=== PATIENT | male | born 1950 | race Caucasian/White ===

== ENCOUNTER 2019-01-10 14:45 | Outpatient (REF) | payer OTHER, SELFPAY ==
[2019-01-10 19:11] LABS: BUN 13 mg/dL (7-18); CREATININE 1.03 mg/dL (0.70-1.30); Calcium 8.6 mg/dL (8.5-10.1); Chloride 104 mmol/L (98-107); Glucose 121 mg/dL (70-100); NT-proBNP 479 pg/mL; Potassium 4.2 mmol/L (3.5-5.1); Sodium 143 mmol/L (136-145); Uric Acid 8.9 mg/dL (3.5-7.2)
== END 2019-01-10 15:05 ==
LOC: NCHCN 14:45
PROVIDERS: PCP Physician Assistant Medical; Visit Provider Internal Medicine
DX: R60.9 Edema, unspecified (principal); M10.9 Gout, unspecified
CPT/HCPCS: 80048; 83880; 84550

== ENCOUNTER 2019-01-14 09:31 | Outpatient (REF) | payer OTHER, SELFPAY ==
[2019-01-14 20:28] LABS: Hemoglobin A1C 6.4 % (4.5-6.2)
[2019-01-14 20:37] LABS: Anion Gap 6.9 mmol/L (3-11); BUN 15 mg/dL (7-18); CO2 31.1 mmol/L (21.0-32.0); CREATININE 1.06 mg/dL (0.70-1.30); Calcium 8.9 mg/dL (8.5-10.1); Calculated LDL 127 mg/dL; Chloride 104 mmol/L (98-107); Cholesterol 187 mg/dL (50-200); Glucose 121 mg/dL (70-100); HDL Cholesterol 49 mg/dL (40-60); Potassium 4.4 mmol/L (3.5-5.1); Sodium 142 mmol/L (136-145); TSH 3.99 uIU/mL (0.36-3.74); Triglyceride 59 mg/dL (30-150)
[2019-01-14 20:56] LABS: C-Reactive Protein 1.22 mg/dL (0.0-0.3); NT-proBNP 416 pg/mL; Uric Acid 8.2 mg/dL (3.5-7.2)
== END 2019-01-14 09:51 ==
LOC: NCHCN 09:31
PROVIDERS: PCP Internal Medicine; Visit Provider Internal Medicine
DX: E78.5 Hyperlipidemia, unspecified (principal); R73.03 Prediabetes; R60.9 Edema, unspecified; M10.9 Gout, unspecified; R06.02 Shortness of breath
CPT/HCPCS: 80048; 80061; 83036; 83880; 84443; 84550; 86140

== ENCOUNTER 2020-01-26 14:09 | Outpatient (REF) | payer OTHER, SELFPAY ==
[2020-01-26 19:49] LABS: HCT 44.6 % (40.0-50.0); HGB 14.7 g/dL (13.5-17.5); MCH 31.8 pg (27.0-33.0); MCV 96.5 fL (80-95); MPV 10.3 fL (8.0-11.0); Platelet Count 239 10^3/uL (130-400); RBC 4.62 10^6/uL (4.36-5.78); RDW 12.5 % (11.8-14.1); RDW-SD 44.5 fL; WBC 5.57 10^3/uL (4.4-10.8)
[2020-01-26 20:21] LABS: Anion Gap 5.6 mmol/L (3-11); BUN 13 mg/dL (7-18); CO2 31.4 mmol/L (21.0-32.0); CREATININE 0.92 mg/dL (0.70-1.30); Calcium 8.6 mg/dL (8.5-10.1); Chloride 105 mmol/L (98-107); Glucose 96 mg/dL (74-106); Potassium 4.3 mmol/L (3.5-5.1); Sodium 142 mmol/L (136-145); Troponin I < 0.05 ng/mL (<0.06)
[2020-01-26 20:31] LABS: D-Dimer 2074 ng/mlFEU (<500)
== END 2020-01-26 14:29 ==
LOC: NCHCN 14:09
PROVIDERS: PCP Internal Medicine; Visit Provider Internal Medicine
DX: E11.9 Type 2 diabetes mellitus without complications (principal); E66.01 Morbid (severe) obesity due to excess calories; J44.9 Chronic obstructive pulmonary disease, unspecified; R03.0 Elevated blood-pressure reading, without diagnosis of hypertension; I48.91 Unspecified atrial fibrillation
CPT/HCPCS: 80048; 85027; 84484; 85379

== ENCOUNTER 2020-02-17 17:52 | Outpatient (REF) | payer OTHER, SELFPAY ==
[2020-02-17 19:18] LABS: Albumin 3.5 g/dL (3.4-5.0); BUN 14 mg/dL (7-18); CREATININE 0.99 mg/dL (0.70-1.30); Chloride 105 mmol/L (98-107); Glucose 111 mg/dL (74-106); NT-proBNP 600 pg/mL (<300); PHOSPHORUS 3.8 mg/dL (2.6-4.7); Potassium 3.9 mmol/L (3.5-5.1); Sodium 142 mmol/L (136-145)
== END 2020-02-17 18:12 ==
LOC: NCHCN 17:52
PROVIDERS: PCP Internal Medicine; Visit Provider Internal Medicine
DX: J90 Pleural effusion, not elsewhere classified (principal); R60.9 Edema, unspecified; B35.6 Tinea cruris
CPT/HCPCS: 80069; 83880

== ENCOUNTER 2020-12-20 14:17 | Outpatient (REF) | payer MEDICARE, SELFPAY ==
[2020-12-20 19:27] LABS: Anion Gap 6.9 mmol/L (3-11); BUN 14 mg/dL (7-18); CO2 33.1 mmol/L (21.0-32.0); CREATININE 0.9 mg/dL (0.70-1.30); Calcium 8.7 mg/dL (8.5-10.1); Chloride 104 mmol/L (98-107); Glucose 74 mg/dL (74-106); Potassium 4.3 mmol/L (3.5-5.1); Sodium 144 mmol/L (136-145)
[2020-12-20 19:45] LABS: HCT 44.7 % (40.0-50.0); HGB 14.2 g/dL (13.5-17.5); MCH 31.1 pg (27.0-33.0); MCHC 31.8 % (32.0-36.0); MCV 97.8 fL (80-95); Platelet Count 257 10^3/uL (130-400); RBC 4.57 10^6/uL (4.36-5.78); RDW 12.7 % (11.8-14.1); RDW-SD 45.7 fL; WBC 5.62 10^3/uL (4.4-10.8)
== END 2020-12-20 14:18 | disposition home or self-care (01) ==
LOC: NCHCN 14:17
PROVIDERS: PCP Internal Medicine; Visit Provider Internal Medicine
DX: I27.81 Cor pulmonale (chronic) (principal); E11.9 Type 2 diabetes mellitus without complications; J44.9 Chronic obstructive pulmonary disease, unspecified; E66.1 Drug-induced obesity
CPT/HCPCS: 80048; 85027

== ENCOUNTER 2022-05-14 18:01 | Outpatient (REF) | payer MEDICARE, SELFPAY ==
[2022-05-14 20:06] LABS: Anion Gap 5.2 mmol/L (3-11); BUN 16 mg/dL (7-18); CO2 30.8 mmol/L (21.0-32.0); CREATININE 0.9 mg/dL (0.70-1.30); Calculated LDL 118 mg/dL (<100); Chloride 106 mmol/L (98-107); Cholesterol 183 mg/dL (<200); Estimated GFR 91.88 (mL/min/1.73m2); Glucose 82 mg/dL (74-106); HDL Cholesterol 52 mg/dL (40-60); Potassium 4.1 mmol/L (3.5-5.1); Sodium 142 mmol/L (136-145); Triglyceride 65 mg/dL (<150)
== END 2022-05-14 18:02 | disposition home or self-care (01) ==
LOC: NCHCN 18:01
PROVIDERS: PCP Internal Medicine; Visit Provider Internal Medicine
DX: E11.9 Type 2 diabetes mellitus without complications (principal); E78.5 Hyperlipidemia, unspecified; R03.0 Elevated blood-pressure reading, without diagnosis of hypertension; E66.01 Morbid (severe) obesity due to excess calories
CPT/HCPCS: 80048; 80061

== ENCOUNTER 2023-02-23 18:11 | Outpatient (REF) | payer MEDICARE, SELFPAY ==
[2023-02-23 20:32] LABS: Anion Gap 7.6 mmol/L (3-11); BUN 16 mg/dL (7-18); CO2 30.4 mmol/L (21.0-32.0); Calcium 8.9 mg/dL (8.5-10.1); Chloride 100 mmol/L (98-107); Estimated GFR 80.47 (mL/min/1.73m2); Glucose 109 mg/dL (74-106); Potassium 3.6 mmol/L (3.5-5.1); Sodium 138 mmol/L (136-145); Uric Acid 5.9 mg/dL (3.5-7.2)
[2023-02-23 20:35] LABS: Abs Immature Grans 0.05 10^3/uL (0.0-0.06); Absolute Basophil Count 0.04 10^3/uL (0.0-0.2); Absolute Eosinophil Count 0.07 10^3/uL (0.0-0.7); Absolute Lymphocyte Count 1.13 10^3/uL (1.2-3.4); Absolute Monocyte Count 0.48 10^3/uL (0.1-0.8); Absolute Neutrophil Count 4.89 10^3/uL (1.2-6.7); Basophils % 0.6; Eosinophils % 1.1; HCT 45.6 % (40.0-50.0); HGB 15.1 g/dL (13.5-17.5); Immature Grans % 0.8; MCH 31.8 pg (27.0-33.0); MCHC 33.1 % (32.0-36.0); MCV 96 fL (80-95); MPV 9.8 fL (8.0-11.0); Monocytes % 7.2; Neutrophils % 73.3; Platelet Count 303 10^3/uL (130-400); RBC 4.75 10^6/uL (4.36-5.78); RDW 12.5 % (11.8-14.1); RDW-SD 44.5 fL; WBC 6.66 10^3/uL (4.4-10.8)
[2023-02-23 20:42] LABS: Bacteria Rare HPF (Negative); C & S Indicated? C&S Done As Ordered; Casts 5-10 Hyaline LPF (Negative); Crystals Negative HPF (Negative); Epithelial Cells Rare HPF (Negative); Mucus Moderate (Negative); RBC 0-2 HPF (0-2); WBC Negative HPF (0-5)
== END 2023-02-23 18:12 | disposition home or self-care (01) ==
LOC: NCHCN 18:11
PROVIDERS: PCP Internal Medicine; Visit Provider Internal Medicine
DX: M10.9 Gout, unspecified (principal); R31.9 Hematuria, unspecified
CPT/HCPCS: 80048; 81015; 84550; 85025; 87086

== ENCOUNTER 2023-04-08 12:32 | Outpatient (REF) | payer MEDICARE, SELFPAY ==
[2023-04-08 20:30] LABS: HCT 42.2 % (40.0-50.0); HGB 13.9 g/dL (13.5-17.5); MCH 31.9 pg (27.0-33.0); MCHC 32.9 % (32.0-36.0); MCV 97 fL (80-95); MPV 10.3 fL (8.0-11.0); Platelet Count 153 10^3/uL (130-400); RBC 4.36 10^6/uL (4.36-5.78); RDW 13.5 % (11.8-14.1); RDW-SD 48.1 fL; WBC 3.41 10^3/uL (4.4-10.8)
[2023-04-08 20:39] LABS: Anion Gap 7.8 mmol/L (3-11); BUN 12 mg/dL (7-18); CO2 29.2 mmol/L (21.0-32.0); CREATININE 0.8 mg/dL (0.70-1.30); Chloride 105 mmol/L (98-107); Estimated GFR 94.62 (mL/min/1.73m2); Glucose 161 mg/dL (74-106); Potassium 3.9 mmol/L (3.5-5.1); Sodium 142 mmol/L (136-145); Uric Acid 6.2 mg/dL (3.5-7.2)
[2023-04-08 20:40] LABS: Hemoglobin A1C 6.1 % (<5.7)
== END 2023-04-08 12:33 | disposition home or self-care (01) ==
LOC: NCHCN 12:32
PROVIDERS: PCP Internal Medicine; Visit Provider Internal Medicine
DX: E11.9 Type 2 diabetes mellitus without complications (principal); M10.9 Gout, unspecified
CPT/HCPCS: 80048; 85027; 83036; 84550

== ENCOUNTER 2024-01-20 14:42 | Outpatient (REF) | payer MEDICARE, SELFPAY ==
[2024-01-20 19:51] LABS: HCT 42.8 % (40.0-50.0); HGB 13.8 g/dL (13.5-17.5); MCH 32.9 pg (27.0-33.0); MCHC 32.2 % (32.0-36.0); MCV 102 fL (80-95); Platelet Count 158 10^3/uL (130-400); RDW 13.3 % (11.8-14.1); RDW-SD 50.4 fL
[2024-01-20 20:10] LABS: C-Reactive Protein 0.75 mg/dL (<or=0.5); Troponin I 22 ng/L (<or=76)
== END 2024-01-20 14:43 | disposition home or self-care (01) ==
LOC: NCHCN 14:42
PROVIDERS: PCP Internal Medicine; Visit Provider Internal Medicine
DX: J90 Pleural effusion, not elsewhere classified (principal); R79.82 Elevated C-reactive protein (CRP); E11.9 Type 2 diabetes mellitus without complications
CPT/HCPCS: 85027; 84484; 86140

== ENCOUNTER → 2024-04-04 08:47 | Outpatient (BNVA) | payer MEDICARE, SELFPAY | PROVIDERS: PCP Internal Medicine; Referring Provider Internal Medicine; Visit Provider Nurse Practitioner Gerontology | DX: R31.9 Hematuria, unspecified (principal); N43.3 Hydrocele, unspecified | CPT/HCPCS: 81003; 99205 ==

== ENCOUNTER 2024-04-04 09:46 | Outpatient (REF) | payer MEDICARE, SELFPAY ==
[2024-04-04 10:55] LABS: Bilirubin Negative (Negative); Blood Small (Negative); Clarity Clear (Clear); Glucose Negative (Negative); Ketones Negative (Negative); Leukocyte Esterase Negative (Negative); Nitrite Negative (Negative); pH 6.5 (5-8)
[2024-04-04 11:02] LABS: Bacteria Negative HPF (Negative); C & S Indicated? No; Casts Negative LPF (Negative); Crystals Negative HPF (Negative); Epithelial Cells Rare HPF (Negative); Mucus Trace (Negative); WBC 0-2 HPF (0-5)
== END 2024-04-04 09:47 | disposition home or self-care (01) ==
LOC: LBN 09:46
PROVIDERS: PCP Internal Medicine; Visit Provider Nurse Practitioner Gerontology
DX: R31.29 Other microscopic hematuria (principal)
CPT/HCPCS: 81003; 81015

== ENCOUNTER 2024-04-08 00:12 | Outpatient (CLI) | payer MEDICARE, SELFPAY ==
[2024-04-08 12:43] LABS: CREATININE 0.9 mg/dL (0.70-1.30); Estimated GFR 90.74 (mL/min/1.73m2)
[2024-04-08] MEDS: Omnipaque 350 MG/ML 500 ML BTL-Imaging package IJ (13:13)
[2024-04-08] MEDS: Omnipaque 350 MG/ML 50 ML BTL IJ (13:14)
[2024-04-08] MEDS: Normal Saline - Diluent 50 ML VIAL IJ (13:15)
--- NOTE | 2024-04-08 13:25 | DI.CT_ITS ---
Exam(s) CT ABDOMEN PELVIS WO/W EXAM: CT ABDOMEN PELVIS WO/W CLINICAL HISTORY: hematuria,r31.9 TECHNIQUE: Imaging Protocol: Axial computed tomography images with coronal and sagittal reformatted images were created and reviewed. CONTRAST MATERIAL: Intravenous: Omnipaque 350 Contrast volume:100 mL Oral: No COMPARISON: No exams were available for comparison FINDINGS: The examination is limited due to patient motion artifact. ABDOMEN: Lung Bases: There is a small left pleural effusion which appears to be encapsulated. Cardiomegaly. There is an infiltrate in the left lower lobe with loss of volume and bronchiectasis. Liver: Normal density. No measurable mass. Portal, Superior Mesenteric, and Splenic Veins: Unremarkable. Gallbladder and Biliary Tract: Gallbladder is contracted. No stones are seen. No biliary ductal dil atation. Pancreas: There is atrophy of the pancreas. No pancreatic mass or peripancreatic fluid collections a re seen. Spleen: Normal. Adrenals: There are bilateral adrenal nodules. The left adrenal logical measures 2.5 x 2.0 cm. The right adrenal nodule measures 2.7 x 2.0 cm. Kidneys: Normal size, contour and axis. No radiodense stones or obstructive uropathy. No masses seen. Abdominal Aorta: Abdominal portion non-dilated. There is atherosclerotic calcification present. Bowel: There is diverticulosis of the colon without evidence of acute diverticulitis. Appendix is un remarkable. Peritoneal Cavity: No ascites, collection or mesenteric inflammatory response. No free air. Lymph Nodes: Within normal limits. Bones: Within normal limits for the patient's age. There is an old fracture deformity of the left il ium. Soft Tissues: Unremarkable. PELVIS: Bladder: The urinary bladder is incompletely distended limiting evaluation. No gross abnormalities i dentified. Reproductive Organs: Unremarkable as visualized. Lymph Nodes: Within normal limits. Bones: Within normal limits for the patient's age. IMPRESSION: 1. There is no evidence of nephrolithiasis or hydronephrosis. No evidence of a renal mass. 2. There is limited evaluation of the urinary bladder due to incomplete distension. No gross abnorma lities identified. 3. Bilateral hypodense adrenal masses most consistent with adrenal adenomas. Nonemergent MRI of the a drenal glands may be obtained for further characterization. 4. Left pleural effusion which appears encapsulated. Comparison should be made with prior examination s if in existence. A CT scan of the chest may considered for further characterization. RADIATION DOSE DELIVERED: 3,617.45mGy.cm Total DLP 3,617.45mGy.cm Total DLP DATA REPOSITORY: All CT scans at this facility are submitted to the National Radiology Data Registry (NRDR) Dose Index Registry (DIR) with the [employer] (ACR). RADIATION OPTIMIZATION: All CT scans at this facility use at least one of these dose optimization te chniques: automated exposure control; mA and/or kV adjustment per patient size (includes targeted exa ms where dose is matched to clinical indication); or iterative reconstruction.
[2024-04-08 22:08] LABS: PSA, Diagnostic 5.6 ng/mL (<=6.5)
== END 2024-04-08 00:32 ==
LOC: DI 00:12
PROVIDERS: PCP Internal Medicine; Visit Provider Nurse Practitioner Gerontology
DX: R31.9 Hematuria, unspecified (principal); R82.89 Other abnormal findings on cytological and histological examination of urine
CPT/HCPCS: 74178; 82565; 84153; Q9967

== ENCOUNTER 2024-04-11 01:07 | Outpatient (CLI) | payer MEDICARE, SELFPAY ==
[2024-04-11] MEDS: Inhaler, Assist Device 1 EACH MC (13:55)
[2024-04-11] MEDS: Levalbuterol HFA 15 GM INH 4 PUFF IH (13:55)
--- NOTE | 2024-04-12 16:02 | W.PFT ---
Date of service: 04/11/24 Time of Service: 13:00 Pulmonary Function Test Result Indications: chronic bronchitis Interpretation Spirometry: No airflow limitation. Restrictive spirometry. No significant bronchodilator response. Lung Volumes: Moderate restriction. Diffusion Capacity: Reduced diffusion Airway Pressure: Normal airways resistance Impression Moderate restrictive lung disease with a reduced diffusion. Clinical Correlation therefore is recommended.
== END 2024-04-11 01:08 | disposition home or self-care (01) ==
LOC: RT 01:07
PROVIDERS: PCP Internal Medicine; Visit Provider Student in an Organized Health Care Education/Training Program
DX: J42 Unspecified chronic bronchitis (principal)
CPT/HCPCS: 94060; 94726; 94729

== ENCOUNTER 2024-04-21 13:46 | Outpatient (REF) | payer MEDICARE, SELFPAY ==
[2024-04-21 19:25] LABS: HCT 42.5 % (40.0-50.0); HGB 13.8 g/dL (13.5-17.5); MCH 32.9 pg (27.0-33.0); MCHC 32.5 % (32.0-36.0); MCV 101 fL (80-95); Platelet Count 162 10^3/uL (130-400); RDW 13.1 % (11.8-14.1); RDW-SD 48.6 fL
[2024-04-21 19:36] LABS: Uric Acid 7.7 mg/dL (3.5-7.2)
== END 2024-04-21 13:47 | disposition home or self-care (01) ==
LOC: NCHCN 13:46
PROVIDERS: PCP Internal Medicine; Visit Provider Internal Medicine
DX: M10.9 Gout, unspecified (principal)
CPT/HCPCS: 85027; 84550

== ENCOUNTER → 2024-04-27 11:39 | Outpatient (BNVA) | payer MEDICARE, SELFPAY | PROVIDERS: PCP Internal Medicine; Referring Provider Internal Medicine; Visit Provider Nurse Practitioner Gerontology | DX: R31.9 Hematuria, unspecified (principal); N43.3 Hydrocele, unspecified; J98.4 Other disorders of lung | CPT/HCPCS: 99213 ==

== ENCOUNTER 2024-05-03 11:34 | Emergency (ER) | payer MEDICARE, SELFPAY ==
[2024-05-03 11:50] VITALS: BP 141/85; PULSE 62; RESP 18; TEMP 36.3; O2SAT 94
[2024-05-03 13:04] VITALS: BP 135/70; PULSE 66; RESP 18; O2SAT 97
--- NOTE | 2024-05-03 13:15 | RT.EKG_ITS ---
APPROVED REPORT Exam: Resting ECG Reason for Exam: gi bleed Patient Location: E HR:55 bpm ECG Measurements Heart Rate 55 AXIS MT [id number] P [id number] QRSd 146 QRS 38 QT 480 T -31 QTc 469 Conclusion Atrial flutter [address] depressions no stemi
--- NOTE | 2024-05-03 13:27 | W.ED.GENAD ---
Discharge Plan Disposition Patient Disposition: Home Discharge Details Clinical Impression: Rectal bleed Primary Care Provider: Glenys Adame ED Provider: Trinity Villagomez Home Meds and New Rx's Prescriptions: No Action colchicine PO BID cyclobenzaprine 10 mg tablet 10 mg PO HS PRN albuterol sulfate 2.5 mg/0.5 mL solution for nebulization 5 mg inhalation Q6H PRN allopurinol 200 mg tablet 200 mg PO DAILY Xarelto 15 mg tablet 15 mg PO DAILY Rx Instructions: must administer with evening meal furosemide 20 mg tablet 20 mg PO BID Stiolto Respimat 2.5-2.5 mcg/actuation mist 2 puff inhalation DAILY levalbuterol HCl 1.25 mg/3 mL solution for nebulization 1.25 mg inhalation Q6H PRN Discharge Instructions Instructions: Bloody Stools, Adult ED Additional Instructions: A referral has been made to general surgery for further evaluation of your bloody stools. They may want to look with the scope to see what is going on I recommend that you also call your primary care provider to schedule follow-up appointment. Continue taking your medications as prescribed. Your CAT scan today was reassuring. There are incidental findings of stable bilateral adrenal nodules. This is something you may want to further evaluate with primary care provider. Return to emergency care if you develop new abdominal pain, vomiting, worsening blood in your stool, palpitations, dizziness, or if you are very worried and need to be rechecked again immediately. Referrals: [facility] [Provider Group] [facility] General Date/Time Provider Initiated Documentation: 05/03/24 11:54. HPI Narrative: Clemente is a 73year old male who presents to the emergency department today for evaluation of blood in stool. He reports that yesterday he first noticed a few drops of blood after he had a normal bowel movement. Today he had more blood, including bright red blood and dark blood clots after his bowel movement. He admits to some lower abdominal discomfort but the stomach he was waiting room, otherwise no discomfort. Denies fever/chills, dizziness, palpitations, new shortness of breath, chest pains, nausea/vomiting, hematuria, gum bleeding, nosebleeds. He is not sure if he has had a colonoscopy in the past. Past medical history is significant for anticoagulation with Xarelto, A-fib, hemorrhoids, COPD, tobacco use. Physical exam remarkable for grossly bloodly stool, positive Hemoccult. Normal rectal exam otherwise. No obvious hemorrhoids. Abdomen is obese, softly distended, nontender to palpation with normoactive bowel sounds. Normal heart sounds. Easy work of breathing, lung sounds clear bilaterally. No CVA tenderness or lower back discomfort with palpation. Moving all extremities equally. No pallor to conjunctiva or gumline. D/dx includes but is not limited to: Lower GI bleed, diverticulitis, hemorrhoids, supratherapeutic anticoagulation I independently interpreted the following tests: INR slightly elevated at 1.2. CBC, CMP, magnesium all reassuring. Slightly elevated isolated bilirubin 1.2, LFTs otherwise unremarkable. CTA abdomen/pelvis performed, no active GI bleeding noted. There is a persistent small left pleural effusion and left basilar infiltrate; patient denies recent coughing or general malaise, says he [place] [facility] recent fluid drained from his lungs within the last3 weeks. Overall workup today reassuring, no evidence of anemia or active GI bleeding at this time. Recommend close follow-up with general surgery for further evaluation / management. Reviewed discharge instructions with patient, including symptomatic management and red flags indicating need for return to emergency care Related Data Home Medications ?Medication ?Instructions ?Recorded ?Confirmed colchicine PO BID 06/17/23 06/17/23 albuterol sulfate 2.5 mg/0.5 mL 5 mg inhalation Q6H PRN 11/27/23 05/03/24 solution for nebulization allopurinol 200 mg tablet 200 mg PO DAILY 11/27/23 05/03/24 cyclobenzaprine 10 mg tablet 10 mg PO HS PRN 11/27/23 05/03/24 rivaroxaban 15 mg tablet (Xarelto) 15 mg PO DAILY 11/27/23 05/03/24 furosemide 20 mg tablet 20 mg PO BID 12/16/23 05/03/24 levalbuterol HCl 1.25 mg/3 mL 1.25 mg inhalation Q6H PRN 12/16/23 05/03/24 solution for nebulization tiotropium 2.5 mcg-olodaterol 2.5 2 puff inhalation DAILY 12/16/23 05/03/24 mcg/actuation mist for inhalation (Stiolto Respimat) Allergies Allergy/AdvReac Type Severity Reaction Status Date / Time No Known Allergies Allergy Verified 05/03/24 11:54 General Stated Complaint: GI Bleed ALBINO: 3 Review of Systems Narrative: see HPI Exam Const General: cooperative, healthy appearing, comfortable, no acute distress and well developed Nutritional Appearance: obese Orientation: alert and oriented x3 Eyes Conjunctivae: conjunctivae normal Resp Effort & Inspection: normal respiratory effort and able to speak in complete sentences Auscultation: clear to auscultation bilaterally Cardio Rate: regular rate Rhythm: regular rhythm GI Inspection: normal to inspection, no abdominal wall ecchymosis and obesity Palpation: soft, not firm, no guarding and nontender Auscultation: normal bowel sounds Rectal Exam: visual inspection normal, normal sphincter tone, No fecal impaction, heme positive stool, No hemorrhoids, No laceration, No lesions and No mass Back/Spine/Pelvis Back: no CVA tenderness Thoracic/Lumbar Spine: No paraspinal tenderness Course Vital Signs Vital signs: Vital Signs Temperature 36.3 C L 05/03/24 11:50 Pulse 62 05/03/24 11:50 Respiratory Rate 18 05/03/24 11:50 Blood Pressure 141/85 H 05/03/24 11:50 Pulse Oximetry 94 05/03/24 11:50 Temperature 36.3 C L 05/03/24 11:50 Temperature Source Oral 05/03/24 11:50 Pulse 66 05/03/24 13:04 Respiratory Rate 18 05/03/24 13:04 Respiratory Effort Normal, Non-Labored 05/03/24 13:04 Respiratory Depth Normal 05/03/24 13:04 Respiratory Pattern Normal 05/03/24 13:04 Blood Pressure 135/70 05/03/24 13:04 Blood Pressure Mean 91 05/03/24 13:04 Blood Pressure Position Sitting 05/03/24 13:04 Pulse Oximetry 97 05/03/24 13:04 Oxygen Delivery Method Room Air 05/03/24 13:04 Oxygen Flow Rate 0 05/03/24 13:04 Medical Decision Making Imaging Data Radiologic Study: Radiologist's impression: Accession No. : [id number] Creator : GLENYS MORALEZ Dictator : GLENYS MORALEZ Airplane Pilot : Launch Commander [employer] : GLENYS MORALEZ Approver2 : Report Date : 05/03/2024 15:36:56 Exam(s) CT ABDOMEN PELVIS CTA EXAM: CT ABDOMEN PELVIS CTA CLINICAL HISTORY: GI bleed, red blood per rectum. on xarelto. TECHNIQUE: Imaging Protocol: Axial CT angiography was performed with multi-slice acquisition and multi-planar and/or 3D reconstructions. CONTRAST MATERIAL: Intravenous: Omnipaque 350 Contrast volume:100mL Oral: No COMPARISON: CT CT ABDOMEN PELVIS WO/W from 04/08/2024 FINDINGS: ABDOMEN AND PELVIS: Abdomen: Celiac axis/mesenteric arteries: No evidence of occlusion or significant stenosis. Renal Arteries: No evidence of occlusion or significant stenosis. Mild atherosclerotic calcification at the origin of the left renal artery. Aorta: No evidence of occlusion or significant stenosis. No aneurysm or dissection. Atherosclerotic calcification is present. Pelvis: Iliac Arteries: No evidence of occlusion or significant stenosis. Atherosclerotic calcification is present. Common Femoral Arteries: No evidence of occlusion or significant stenosis. Atherosclerotic calcification is present. ABDOMEN: Lung bases: There is a left pleural effusion and a left lower lobe infiltrate. Cardiomegaly. Liver: Normal density. No measurable mass. Portal, Superior Mesenteric, and Splenic Veins: Unremarkable. No evidence of portal venous gas. Gallbladder and Biliary Tract: No radiodense calculus or dilation. Pancreas: There is fatty infiltration of the pancreas. No evidence of a pancreatic mass or peripancreatic fluid collection. Spleen: Normal. Adrenals: There are bilateral adrenal nodules. There is a 2.4 x 2.1 cm hypodense left adrenal nodule. There is a 2.0 x 2.8 cm hypodense right adrenal nodule. Kidneys: Normal size, contour and axis. No radiodense stones or obstructive uropathy. No masses seen. Bowel: There is diverticulosis of the colon without evidence of acute diverticulitis. There is no evidence of bowel obstruction or bowel wall thickening. Portions of the ascending and descending colon were not included on the examination due to patient body habitus and technique. No pneumatosis is identified. Appendix is unremarkable. Peritoneal Cavity: No ascites, collection or mesenteric inflammatory response. No free air. Lymph Nodes: Within normal limits. Bones: Unremarkable. There is an old healed fracture deformity of the left iliac bone. There is L5 spondylolysis but no spondylolisthesis. Soft Tissues: Unremarkable. PELVIS: Bladder: Urinary bladder is incompletely distended limiting evaluation. Reproductive Organs: Unremarkable as visualized. Lymph Nodes: Within normal limits. Bones: Within normal limits. IMPRESSION: 1. No acute abdominal or pelvic process. 2. Persistent small left pleural effusion and left basilar infiltrate. 3. Stable bilateral adrenal nodules. Nonemergent MRI may be obtained for further evaluation. 4. No evidence of gastrointestinal bleeding. 5. No evidence of abdominal aortic dissection or aneurysm. RADIATION DOSE DELIVERED: 2,545.88mGy.cm Total DLP DATA REPOSITORY: All CT scans at this facility are submitted to the National Radiology Data Registry (NRDR) Dose Index Registry (DIR) with the [employer] (ACR). RADIATION OPTIMIZATION: All CT scans at this facility use at least one of these dose optimization techniques: automated exposure control; mA and/or kV adjustment per patient size (includes targeted exams where dose is matched to clinical indication); or iterative reconstruction. Quality:SDOH Health Related Social Needs: No Data to Display PFSH All Active Problems (Updated 05/03/24 @ 16:19 by Trinity Patel) Rectal bleed (Acute) Hematuria (Acute) Impairment of speech discrimination (Acute) Medical History COPD (chronic obstructive pulmonary disease) Prediabetes Smoker HTN (hypertension) Dyspnea Anticoagulant long-term use Mild neurocognitive disorder Lumbar spondylosis Pleural effusion Nicotine dependence Type 2 diabetes mellitus Edema Disorder of lung Gout ELEUTERIO (obstructive sleep apnea) SCCA (squamous cell carcinoma) of skin Tinea cruris HLD (hyperlipidemia) Severe obesity Afib Hydrocele Snoring (08/06/16) Sensorineural hearing loss (SNHL) of both ears Diffuse otitis externa of left ear (08/06/16) Surgical History S/P herniorrhaphy History of left hip replacement S/P ORIF (open reduction internal fixation) fracture Left arm Family History Father Heart disease Brother Heart disease Social History Smoking/Tobacco Use Status: Never Smoking risk assessment performed?: Yes Alcohol Intake: current Alcohol Intake frequency: a few times a week Drug use: Never Substance use type: does not use Do you feel safe at home: Yes Do you feel safe in your relationship?: Yes PAWSS Have you Been Recently Intoxicated or Drunk Within the Last 30 days?: No Have you Ever Experienced Previous Episodes of Alcohol Withdrawal?: No Have you ever Experienced Withdrawal Seizures?: No Have you ever Experienced Delirium Tremens(DT)s?: No Have you ever undergone Alcohol Rehabilitation Treatment (i.e, inpt ot outpatient treatment programs)?: No Have you ever Experienced Blackouts?: No Have you ever Combined Alcohol with other Downers within the last 90 days?: No Have you ever Combined Alcohol with any other Substance of Abuse during the last 90 days?: No Positive Blood Alcohol level on Presentation? [PCS.BAL]: No Evidence of Increased Autonomic Activity (i.e. HR>120, tremor, sweating, agitation, nausea)?: No Result: 0
[2024-05-03 14:10] LABS: Abs Immature Grans 0.01 10^3/uL (0.0-0.06); Absolute Basophil Count 0.05 10^3/uL (0.0-0.2); Absolute Eosinophil Count 0.06 10^3/uL (0.0-0.7); Absolute Lymphocyte Count 0.94 10^3/uL (1.2-3.4); Absolute Monocyte Count 0.47 10^3/uL (0.1-0.8); Absolute Neutrophil Count 2.98 10^3/uL (1.2-6.7); Basophils % 1.1 %; Eosinophils % 1.3 %; HCT 42.2 % (40.0-50.0); HGB 13.8 g/dL (13.5-17.5); Immature Grans % 0.2 %; Lymphocytes % 20.8 %; MCHC 32.7 % (32.0-36.0); MCV 101 fL (80-95); MPV 9.5 fL (8.0-11.0); Monocytes % 10.4 %; Neutrophils % 66.2 %; Platelet Count 147 10^3/uL (130-400); RBC 4.18 10^6/uL (4.36-5.78); RDW 13.2 % (11.8-14.1); RDW-SD 49.2 fL; WBC 4.51 10^3/uL (4.4-10.8)
[2024-05-03 14:24] LABS: INR 1.2 (0.9-1.1); PTT Activated 29.5 sec (20.6-30.2); Prothrombin Time 12.1 sec (9.1-11.1)
[2024-05-03 14:35] LABS: ALT 16 U/L (16-63); AST 18 U/L (15-37); Albumin 3.3 g/dL (3.4-5.0); Alkaline Phosphatase 99 U/L (46-116); Anion Gap 6.1 mmol/L (3-11); BUN 14 mg/dL (7-18); Bilirubin, Total 1.26 mg/dL (0.2-1.0); CO2 30.9 mmol/L (21.0-32.0); CREATININE 0.9 mg/dL (0.70-1.30); Chloride 107 mmol/L (98-107); Estimated GFR 90.74 (mL/min/1.73m2); Glucose 92 mg/dL (74-106); Magnesium 2.1 mg/dL (1.8-2.4); Sodium 144 mmol/L (136-145); Total Protein 7.3 g/dL (6.4-8.2)
[2024-05-03] MEDS: Normal Saline - Diluent 50 ML VIAL IJ (14:53)
[2024-05-03] MEDS: Omnipaque 350 MG/ML 100 ML BTL IJ (14:54)
--- NOTE | 2024-05-03 15:17 | DI.CT_ITS ---
Exam(s) CT ABDOMEN PELVIS CTA EXAM: CT ABDOMEN PELVIS CTA CLINICAL HISTORY: GI bleed, red blood per rectum. on xarelto. TECHNIQUE: Imaging Protocol: Axial CT angiography was performed with multi-slice acquisition and m ulti-planar and/or 3D reconstructions. CONTRAST MATERIAL: Intravenous: Omnipaque 350 Contrast volume:100mL Oral: No COMPARISON: CT CT ABDOMEN PELVIS WO/W from 04/08/2024 FINDINGS: ABDOMEN AND PELVIS: Abdomen: Celiac axis/mesenteric arteries: No evidence of occlusion or significant stenosis. Renal Arteries: No evidence of occlusion or significant stenosis. Mild atherosclerotic calcification at the origin of the left renal artery. Aorta: No evidence of occlusion or significant stenosis. No aneurysm or dissection. Atherosclerotic calcification is present. Pelvis: Iliac Arteries: No evidence of occlusion or significant stenosis. Atherosclerotic calcification is p resent. Common Femoral Arteries: No evidence of occlusion or significant stenosis. Atherosclerotic calcifica tion is present. ABDOMEN: Lung bases: There is a left pleural effusion and a left lower lobe infiltrate. Cardiomegaly. Liver: Normal density. No measurable mass. Portal, Superior Mesenteric, and Splenic Veins: Unremarkable. No evidence of portal venous gas. Gallbladder and Biliary Tract: No radiodense calculus or dilation. Pancreas: There is fatty infiltration of the pancreas. No evidence of a pancreatic mass or peripancr eatic fluid collection. Spleen: Normal. Adrenals: There are bilateral adrenal nodules. There is a 2.4 x 2.1 cm hypodense left adrenal nodule . There is a 2.0 x 2.8 cm hypodense right adrenal nodule. Kidneys: Normal size, contour and axis. No radiodense stones or obstructive uropathy. No masses seen. Bowel: There is diverticulosis of the colon without evidence of acute diverticulitis. There is no ev idence of bowel obstruction or bowel wall thickening. Portions of the ascending and descending colon were not included on the examination due to patient body habitus and technique. No pneumatosis is i dentified. Appendix is unremarkable. Peritoneal Cavity: No ascites, collection or mesenteric inflammatory response. No free air. Lymph Nodes: Within normal limits. Bones: Unremarkable. There is an old healed fracture deformity of the left iliac bone. There is L5 s pondylolysis but no spondylolisthesis. Soft Tissues: Unremarkable. PELVIS: Bladder: Urinary bladder is incompletely distended limiting evaluation. Reproductive Organs: Unremarkable as visualized. Lymph Nodes: Within normal limits. Bones: Within normal limits. IMPRESSION: 1. No acute abdominal or pelvic process. 2. Persistent small left pleural effusion and left basilar infiltrate. 3. Stable bilateral adrenal nodules. Nonemergent MRI may be obtained for further evaluation. 4. No evidence of gastrointestinal bleeding. 5. No evidence of abdominal aortic dissection or aneurysm. RADIATION DOSE DELIVERED: 2,545.88mGy.cm Total DLP DATA REPOSITORY: All CT scans at this facility are submitted to the National Radiology Data Registry (NRDR) Dose Index Registry (DIR) with the [employer] (ACR). RADIATION OPTIMIZATION: All CT scans at this facility use at least one of these dose optimization te chniques: automated exposure control; mA and/or kV adjustment per patient size (includes targeted exa ms where dose is matched to clinical indication); or iterative reconstruction.
[2024-05-03 16:36] VITALS: BP 135/65; PULSE 82; RESP 18; O2SAT 96
== END 2024-05-03 16:36 | disposition home or self-care (01) ==
PROVIDERS: Emergency Provider Nurse Practitioner Family; PCP Internal Medicine
DX: K62.5 Hemorrhage of anus and rectum (principal)
CPT/HCPCS: 36415; 80053; 93005; 99285; 74174; 83735; 85025; 85610; 85730; 93010; 99284; J3490

== ENCOUNTER → 2024-05-09 13:13 | Outpatient (BNVA) | payer MEDICARE, SELFPAY | PROVIDERS: PCP Internal Medicine; Referring Provider Nurse Practitioner Family; Visit Provider Surgery | DX: K62.5 Hemorrhage of anus and rectum (principal); J44.9 Chronic obstructive pulmonary disease, unspecified | CPT/HCPCS: 99214 ==

== ENCOUNTER 2024-05-27 06:56 | Day surgery (SDC) | payer MEDICARE, SELFPAY ==
[2024-05-27 07:00] VITALS: BP 145/86; PULSE 74; RESP 20; TEMP 37; O2SAT 96
--- NOTE | 2024-05-27 08:54 | W.ANESPRE ---
General Info Date of Service Date Performed: 05/27/24 Height: 5 ft 7 in Weight: 116.2 kg Body Mass Index (BMI): 40.1 Surgical Procedure: Operation Date: 05/27/24 09:20 Proposed Procedure Side Surgeon kvng Fournier MD Meds Allergies and Home Medications Allergies Allergy/AdvReac Type Severity Reaction Status Date / Time No Known Allergies Allergy Verified 05/27/24 07:25 Home Medication ?Medication ?Instructions ?Recorded albuterol sulfate 2.5 mg/0.5 mL 5 mg inhalation Q6H PRN 11/27/23 solution for nebulization rivaroxaban 15 mg tablet (Xarelto) 15 mg PO DAILY 11/27/23 furosemide 20 mg tablet 20 mg PO BID 12/16/23 levalbuterol HCl 1.25 mg/3 mL 1.25 mg inhalation Q6H PRN 12/16/23 solution for nebulization allopurinol 200 mg tablet 100 mg PO DAILY PRN 05/09/24 peg 3350-electrolytes 236 240 ml PO Q10M #4,000 mL 05/09/24 gram-22.74 gram-6.74 gram-5.86 gram solution (Golytely) Current Visit Medications: Current Medications Generic Name Dose Route Start Last Admin Trade Name Freq PRN Reason Stop Dose Admin Ringer's Solution 1,000 mls @ 80 mls/hr 05/27/24 06:00 IV 05/27/24 23:59 INFUSION TAVO IV Miscellaneous Supplies 1 each 05/27/24 06:00 Iv Access IV 05/27/24 23:59 DIRECTED TAVO Sodium Chloride 0 ml 05/27/24 06:00 Normal Saline Flush 10 Ml Syr IV 05/27/24 23:59 PRN PRN Sodium Chloride 0 ml 05/27/24 06:00 Normal Saline 10 Ml Vial IJ 05/27/24 23:59 DIRECTED PRN Sterile Water 0 ml 05/27/24 06:00 Water,Injection,Sterile 10 Ml Vial IJ 05/27/24 23:59 DIRECTED PRN PFSH Active Problems Active Problems: Problem Status Onset Code Sensorineural hearing loss, bilateral Acute 08/25/16 H90.3 Rectal bleed Acute K62.5 Hematuria Acute R31.9 Impairment of speech discrimination Acute H93.299 Medical History Medical History COPD (chronic obstructive pulmonary disease) Prediabetes Smoker HTN (hypertension) Dyspnea Anticoagulant long-term use Mild neurocognitive disorder Lumbar spondylosis Pleural effusion Nicotine dependence Type 2 diabetes mellitus Edema Disorder of lung Gout ELEUTERIO (obstructive sleep apnea) SCCA (squamous cell carcinoma) of skin Tinea cruris HLD (hyperlipidemia) Severe obesity Afib Hydrocele Snoring (08/06/16) Sensorineural hearing loss (SNHL) of both ears Diffuse otitis externa of left ear (08/06/16) Surgical History Surgical History S/P herniorrhaphy History of left hip replacement Pt. denies this states he had a fractured hip but no replacement. S/P ORIF (open reduction internal fixation) fracture Left arm Tobacco Smoking/Tobacco Use Status: Former Tobacco Use Passive smoking exposure: No Alcohol Alcohol Intake: current Alcohol intake frequency: a few times a week Substance Use Substance use: Never Substance use type: does not use Vital Signs and Lab Results Vital Signs Most Recent Vital Signs in EMR: Most Recent Vital Signs Temp Pulse Resp BP Pulse Ox 37 C 74 20 145/86 H 96 05/27/24 07:00 05/27/24 07:00 05/27/24 07:00 05/27/24 07:00 05/27/24 07:00 Lab Results Blood Type / Crossmatch: No Data to Display Complete Blood Count: White Blood Count 4.51 10^3/uL (4.4-10.8) 05/03/24 13:55 Red Blood Count 4.18 10^6/uL (4.36-5.78) L 05/03/24 13:55 Hemoglobin 13.8 g/dL (13.5-17.5) 05/03/24 13:55 Hematocrit 42.2 % (40.0-50.0) 05/03/24 13:55 Platelet Count 147 10^3/uL (130-400) 05/03/24 13:55 Complete Metabolic Panel: Sodium 144 mmol/L (136-145) 05/03/24 13:55 Potassium 4.0 mmol/L (3.5-5.1) 05/03/24 13:55 Chloride 107 mmol/L (98-107) 05/03/24 13:55 Carbon Dioxide 30.9 mmol/L (21.0-32.0) 05/03/24 13:55 BUN 14 mg/dL (7-18) 05/03/24 13:55 Creatinine 0.9 mg/dL (0.70-1.30) 05/03/24 13:55 Est GFR (CKD-EPI 2020) 90.74 (mL/min/1.73m2) 05/03/24 13:55 Magnesium 2.1 mg/dL (1.8-2.4) 05/03/24 13:55 Calcium 9.0 mg/dL (8.5-10.1) 05/03/24 13:55 Albumin 3.3 g/dL (3.4-5.0) L 05/03/24 13:55 Glucose 92 mg/dL (74-106) 05/03/24 13:55 Liver Function Panel: Alanine Aminotransferase (ALT/SGPT) 16 U/L (16-63) 05/03/24 13:55 Aspartate Amino Transf (AST/SGOT) 18 U/L (15-37) 05/03/24 13:55 Coagulation Panel: INR International Normalized Ratio 1.2 (0.9-1.1) H 05/03/24 13:55 Prothrombin Time 12.1 sec (9.1-11.1) H 05/03/24 13:55 Activated Partial Thromboplast Time 29.5 sec (20.6-30.2) 05/03/24 13:55 Cardiac Panel: No Data to Display Arterial Blood Gas: No Data to Display Venous Blood Gas: No Data to Display Pancreas Panel: No Data to Display Thyroid Panel: No Data to Display Infectious Disease: No Data to Display Blood Cultures: No Data to Display Toxicology Panel: No Data to Display Imaging and Studies Imaging and Studies Study information below may be from another EMR and interpreted by another provider. Please see original notes in EMR for more complete details. EKG Summary: 05/03/24: Exam: Resting ECG Reason for Exam: gi bleed Patient Location: E HR:55 bpm ECG Measurements Heart Rate 55 AXIS OK [id number] P [id number] QRSd 146 QRS 38 QT 480 T-31 QTc 469 Conclusion Atrial flutter [address] depressions no stemi I have reviewed and I agree with the emergency room physician's ECG interpretation. Pulmonary Function Summary: 04/12/24: Pulmonary Function Test Result Indications: chronic bronchitis Interpretation Spirometry: No airflow limitation. Restrictive spirometry. No significant bronchodilator response. Lung Volumes: Moderate restriction. Diffusion Capacity: Reduced diffusion Airway Pressure: Normal airways resistance Impression Moderate restrictive lung disease with a reduced diffusion. Clinical Correlation therefore is recommended. Anesthesia Assessment and Plan Anesthesia History Personal History: No History of Anesthesia Complications Family History: No Family History of Anesthesia Complications Exercise Tolerance Exercise Tolerance: Metabolic Equivalents<4 Cardiac & Pulmonary Exam Cardiac Exam: Normal S1/S2 Heart Sounds Pulmonary Exam: Other (Diminished) Implantable Cardiac Device Does patient have a Pacemaker or an ICD?: No Airway Exam Known Difficult Airway: No Mallampati Class: 3 Mouth Opening: Normal (> 3cm) Thyromental Distance: Greater than 3 cm Neck Range of Motion: Full ROM Neck Circumference: Normal Teeth Condition: Normal Dentition ASA Classification ASA Score: ASA 3 Emergency Case?: No NPO Status NPO Status: NPO Clears >2 hours, Solids >8 hours Anesthesia Plan Resuscitation Status: Full Code Anesthesia Technique: MAC Anesthesia Airway Planned: Natural Airway Monitors Used: Standard Monitors Preoperative Comments:: 73 y/o male with known loculated left pleural effusion that's [place] [facility] [place] His recent nuclear stress test from 05/24/24 show a small mild basilar septal perfusion defect, grossly normal left ventricular systolic function and abnormal global coronary flow reserve. Patient continues to get workup through [place] [facility] The patient continue to have rectal bleeding and Dr. Fournier states this is urgent to access bleeding from polyp versus more concerning process. Discussed high risk patient with both surgeon and patient. Patient was offered MAC anesthesia today and explained he would remain more awake. Patient verbalized understanding cardiac risk, pulmonary risk, but states this rectal concern is impacting his quality of life and wishes to proceed today on an urgent status.
[2024-05-27 09:02] VITALS: BMI 40.1
--- NOTE | 2024-05-27 10:01 | COLE_ITS ---
Date of service: 05/27/24 Time of Service: 10:01 Colonoscopy Report Date of procedure: 05/27/24 Pre-op diagnosis general: Hematochezia Post-op diagnosis procedure note: other (Multiple polyps and diverticulosis) Procedure: Colonoscopy with multiple polypectomies, cautery snare, cold snare, cold forceps Surgeon: Dinora Fournier Anesthesia Type: MAC Estimated blood loss (mL): 0 Pathology: other (Multiple polyps sent for pathology as outlined) Complications: None Disposition: same day Indications: Patient with episodes of hematochezia and no previous colonoscopy Findings: Cecum: 2 sessile polyps, 7 mm and 10 mm, each removed with cautery snare polypectomy technique, completely retrieved for pathology. Proximal transverse colon: 1 sessile 5 mm polyp removed with cold snare polypectomy technique. Polyp completely retrieved for pathology Mid transverse colon: 1 sessile polyp, 1.5 cm diameter, removed piecemeal with cautery snare applications, polyp completely removed and retrieved for pathology. Descending colon: 3 sessile polyps, 4 mm each, removed with multiple bites of a plain biopsy forceps. Rectum: 6 sessile polyps ranging in size from 5 mm to 10 mm. Each removed with cautery snare polypectomy technique and retrieved for pathology. Mild sigmoid diverticulosis Procedure Description: After the risks, benefits, and alternatives of the procedure were thoroughly explained, informed consent was obtained. The Patient is brought to the procedure room and time out is performed confirming patient identity, nature of procedure. Patient is connected to monitoring devices including O2 sat, EKG and given supplemental oxygen per anesthesia. After appropriate anesthetic is obtained, patient is placed in the left lateral decubitus position and digital rectal exam performed with the findings noted . The colonoscope is inserted through the anus and guided under direct vision to the proximal colon as co nfirmed by presence of the appendiceal orifice and the ileocecal valve. The colonoscope is then slowly withdrawn , inspecting all aspects of the mucosa completely. Findings and any associated intervention, are noted above. The colonoscope was then completely withdrawn from the patient and the procedure terminated. The patient tolerated the procedure well and is transferred back to the Day surgery unit in stable condition.
--- NOTE | 2024-05-27 10:06 | W.PM.DSUDISC ---
Date of service: 05/27/24 Discharge Plan Disposition Patient Disposition: Home Discharge Details Attending Provider: Dinora Fournier Primary Care Provider: Tom Adame Home Meds and New Rx's Prescriptions: No Action peg 3350-electrolytes [Golytely] 236-22.74-6.74 -5.86 gram recon soln 240 ml PO Q10M Qty: 4000 0RF Rx Instructions: until fecal effluent is clear albuterol sulfate 2.5 mg/0.5 mL solution for nebulization 5 mg inhalation Q6H PRN Xarelto 15 mg tablet 15 mg PO DAILY Rx Instructions: must administer with evening meal furosemide 20 mg tablet 20 mg PO BID levalbuterol HCl 1.25 mg/3 mL solution for nebulization 1.25 mg inhalation Q6H PRN allopurinol 200 mg tablet 100 mg PO DAILY PRN Discharge Instructions Additional Instructions: You had multiple polyps removed today during your colonoscopy. Please do not restart your Xarelto until Thursday morning. You will receive the results of the pathology with a recommendation for further follow-up. The results will take 7 to 10 days. You have mild diverticulosis in the sigmoid colon. I recommend that you take a daily fiber supplement. Hopefully you will not notice any further rectal bleeding. You do also have varicose veins in your rectum which could on occasion have some bleeding. Discharge Orders Discharge Orders: Discharge Order (Routine); Ordered 05/27/24 Ordered By: Dinora Fournier
[2024-05-27] MEDS: Lactated Ringers 1,000 ML 80 ML IV (10:09)
[2024-05-27 10:10] VITALS: BP 112/54; PULSE 68; RESP 19; TEMP 36.5; O2SAT 99
--- NOTE | 2024-05-27 10:16 | W.ANESPOSTOP ---
Postoperative Evaluation Date, Time and Location Date Performed: 05/27/24 Time Performed: 10:05 Patient Location: Day Surgery Unit Vital Signs Most Recent Imported Vital Signs: Most Recent Vital Signs Temp Pulse Resp BP Pulse Ox 36.5 C 68 19 112/54 L 99 05/27/24 10:10 05/27/24 10:10 05/27/24 10:10 05/27/24 10:10 05/27/24 10:10 Pain Score Most Recent Pain Score: Most Recent Pain Score Pain Level 1 05/27/24 10:10 Assessment Mental Status: Awake (Alert & Oriented to Patient Baseline) Airway and Respiratory Function: Patent airway with normal (patient baseline) respiratory exam Cardiovascular Function: Hemodynamically Stable Hydration Status: Adequately Hydrated Nausea & Vomiting: No Nausea or Vomiting Pain: Pt. Denies Any Pain Peripheral Nerve Block: Patient did not receive a nerve block
[2024-05-27 10:21] VITALS: BP 125/76; PULSE 95; RESP 18; TEMP 36.5; O2SAT 95
== END 2024-05-27 10:55 | disposition home or self-care (01) ==
PROVIDERS: PCP Internal Medicine; Visit Provider Surgery
PROC: 0DJD8ZZ Inspection of Lower Intestinal Tract, Via Natural or Artificial Opening Endoscopic (ICD-10-PCS; CPT 45378; principal; 2024-05-27 09:15)
DX: K92.1 Melena (principal); K57.30 Diverticulosis of large intestine without perforation or abscess without bleeding; D12.0 Benign neoplasm of cecum; D12.3 Benign neoplasm of transverse colon; D12.4 Benign neoplasm of descending colon
CPT/HCPCS: 45385; 45380; 88305; J2003; J3010

== ENCOUNTER 2024-07-25 13:25 | Outpatient (REF) | payer MEDICARE, SELFPAY ==
[2024-07-25 20:11] LABS: HCT 41.9 % (40.0-50.0); HGB 13.9 g/dL (13.5-17.5); MCH 32.9 pg (27.0-33.0); MCHC 33.2 % (32.0-36.0); MCV 99 fL (80-95); MPV 10.4 fL (8.0-11.0); Platelet Count 159 10^3/uL (130-400); RBC 4.22 10^6/uL (4.36-5.78); RDW 13.5 % (11.8-14.1); RDW-SD 49.2 fL; WBC 4.11 10^3/uL (4.4-10.8)
[2024-07-25 20:19] LABS: Anion Gap 5.2 mmol/L (3-11); BUN 14 mg/dL (7-18); CO2 31.8 mmol/L (21.0-32.0); CREATININE 0.9 mg/dL (0.70-1.30); Calcium 9.1 mg/dL (8.5-10.1); Chloride 106 mmol/L (98-107); Estimated GFR 90.74 (mL/min/1.73m2); Glucose 116 mg/dL (74-106); Potassium 3.9 mmol/L (3.5-5.1); Sodium 143 mmol/L (136-145)
[2024-07-26 10:40] LABS: Uric Acid 5.5 mg/dL (3.5-7.2)
== END 2024-07-25 13:26 | disposition home or self-care (01) ==
LOC: NCHCN 13:25
PROVIDERS: PCP Internal Medicine; Visit Provider Internal Medicine
DX: R04.0 Epistaxis (principal); Z87.39 Personal history of other diseases of the musculoskeletal system and connective tissue; I10 Essential (primary) hypertension
CPT/HCPCS: 80048; 85027; 84550

== ENCOUNTER → 2024-11-16 08:02 | Outpatient (BNVA) | payer MEDICARE, SELFPAY | PROVIDERS: PCP Internal Medicine; Referring Provider Internal Medicine; Visit Provider Nurse Practitioner Gerontology | DX: R31.9 Hematuria, unspecified (principal); N43.3 Hydrocele, unspecified; Z80.42 Family history of malignant neoplasm of prostate | CPT/HCPCS: 99214 ==

== ENCOUNTER → 2024-12-13 08:43 | Outpatient (BNVA) | payer MEDICARE, SELFPAY | PROVIDERS: PCP Internal Medicine; Referring Provider Internal Medicine; Visit Provider Urology | DX: R31.9 Hematuria, unspecified (principal) | CPT/HCPCS: 81002; 52000 ==

== ENCOUNTER 2024-12-13 09:38 | Outpatient (REF) | payer MEDICARE, SELFPAY ==
--- NOTE | 2024-12-13 09:25 | PAPNONF_PTH ---
PATIENT: Clemente Torres LOC: [facility] U#:[id number] AGE/SX: 74/M ROOM: RE12/13/[address]: Arpan Allen MD : [id number] BED: DIS: 12/13/2024 SPEC #: [id number] RECD: 12/13/24 12:55 STATUS: ADELA MILLER #: [id number] ROMELIA: 12/13/24 09:[address]: Arpan Allen DEPT: [facility] Cytology RECD BY: Naomi Darby ENTERED: 12/13/24 12:55 SP TYPE: DEJA CABEZAS DR: Tom Adame Tissues: 1 - BODY FLUID CYTO(SPUTUM/URINE)[facility] Procedures: BODY FLUID CYTO(URINE/SPUTUM) Comments: [id number] (TV = 55 ml, 30 ml CYTOLYT ADDED) (REFRIGERATED)
== END 2024-12-13 09:39 | disposition home or self-care (01) ==
LOC: LBN 09:38
PROVIDERS: PCP Internal Medicine; Visit Provider Urology
DX: R31.9 Hematuria, unspecified (principal)
CPT/HCPCS: 88104

== ENCOUNTER → 2025-01-02 13:24 | Outpatient (BNVA) | payer MEDICARE, SELFPAY | PROVIDERS: PCP Internal Medicine; Referring Provider Internal Medicine; Visit Provider Urology | DX: N43.3 Hydrocele, unspecified (principal); Z79.01 Long term (current) use of anticoagulants | CPT/HCPCS: 99214 ==

== ENCOUNTER 2025-01-13 11:06 | Outpatient (CLI) | payer MEDICARE, SELFPAY ==
--- NOTE | 2025-01-13 11:30 | RT.EKG_ITS ---
APPROVED REPORT Exam: Resting ECG Reason for Exam: npw baseline needed Patient Location: O HR:73 bpm ECG Measurements Heart Rate 73 AXIS HI [id number] P [id number] QRSd 149 QRS 25 QT 451 T -59 QTc 497 Conclusion Atrial flutter with predominant 4:1 AV block...A-rate 306, multiple Ps Right bundle branch block...QRSd>120, terminal axis(90,270) Borderline ST depression, lateral leads...ST <-0.07mV, I aVL V5 V6
== END 2025-01-13 11:07 | disposition home or self-care (01) ==
PROVIDERS: PCP Internal Medicine; Referring Provider Internal Medicine; Visit Provider Internal Medicine Cardiovascular Disease
DX: I27.20 Pulmonary hypertension, unspecified (principal); J44.9 Chronic obstructive pulmonary disease, unspecified; I10 Essential (primary) hypertension; I48.21 Permanent atrial fibrillation
CPT/HCPCS: 93010

== ENCOUNTER → 2025-01-13 11:06 | Outpatient (BNVA) | payer MEDICARE, SELFPAY | PROVIDERS: PCP Internal Medicine; Referring Provider Internal Medicine; Visit Provider Internal Medicine Cardiovascular Disease | DX: I48.21 Permanent atrial fibrillation (principal); I25.10 Atherosclerotic heart disease of native coronary artery without angina pectoris; G47.33 Obstructive sleep apnea (adult) (pediatric); I10 Essential (primary) hypertension; I27.20 Pulmonary hypertension, unspecified; J44.9 Chronic obstructive pulmonary disease, unspecified; Z79.01 Long term (current) use of anticoagulants | CPT/HCPCS: 99214; 93005 ==

== ENCOUNTER → 2025-01-16 13:42 | Outpatient (BNVA) | payer MEDICARE, SELFPAY | PROVIDERS: PCP Internal Medicine; Referring Provider Internal Medicine; Visit Provider Urology | DX: N43.3 Hydrocele, unspecified (principal) | CPT/HCPCS: 55000 ==

== ENCOUNTER → 2025-01-17 00:25 | Outpatient (CLI) | payer MEDICARE, SELFPAY ==
--- NOTE | 2025-01-17 06:30 | DI.US_ITS ---
APPROVED REPORT EXAM: Comprehensive 2D, Doppler, and color-flow Echocardiogram Patient Location: Out-Patient Professor Of Floriculture: Cristy Ely RT (R) (CT) [facility] Rhythm: Atrial Fibrillation Indications: Atherosclerotic heart disease, atrial fibrillation. LV function and Pa pressure. Other Information Study Quality: Technically Difficult Conclusion Moderate concentric left ventricular hypertrophy. Normal left ventricular chamber size. Ejection fraction is greater than 70%. Paradoxic septal motion suggests right ventricular volume overload. Diastolic septal flattening suggest pulmonary hypertension Right ventricle is enlarged and hypocontractile Both atria are severely dilated there is a small atrial septal defect with [id number] flow Aortic valve is sclerotic and trileaflet. There is moderate aortic stenosis. There is trace aortic regurgitation Mild to moderate tricuspid regurgitation. Estimated right ventricular systolic pressure is greater than 60 mmHg Wall motion Left Ventricle The left ventricle is grossly normal size. The left ventricular systolic function is normal. The left ventricular ejection fraction is within the normal range. Moderate concentric left ventricular hypertrophy. There is no evidence of LVOT obstruction. Paradoxical septal motion consistent with right ventricular volume overload. Diastolic function is difficult to interpret with atrial fibrillation, however e/e' average > 11 suggests elevated left atrial filling pressures- At least Grade II diastolic dysfunction. LVEF is >70%. Right Ventricle Right ventricle is moderately dilated. Right ventricle is moderately hypokinetic. Septum is flatten intermittently in systole and diastole consistent with RV pressure and volume overload. There is normal right ventricular wall thickness. Atria Left atrium is severely dilated. Right atrium is severely dilated. Small ASD present by color flow Doppler with a Qp/Qs: 1.14. Aortic Valve Aortic valve is sclerotic and trileaflet Moderate aortic stenosis. Highest mean aortic valve gradient is 25.72 mmHg. Peak aortic valve gradient is 48.14 mmHg. Calculated ROCCO by the continuity equation is 1 cm2. Trace aortic regurgitation. Mitral Valve Mitral valve leaflets are mildly thickened. No evidence of mitral valve stenosis. Trace mitral regurgitation. Tricuspid Valve Tricuspid valve is grossly normal in structure. There is no tricuspid valve stenosis. Mild to moderate tricuspid regurgitation. There is severe pulmonary hypertension. The RVSP is >60 mmHg. Pulmonic Valve Pulmonic valve is grossly normal in structure. There is no pulmonic valvular stenosis. Mild pulmonic regurgitation. Great Vessels The aortic root is normal in size. Pulmonary artery is dilated. The ascending aorta is normal in size. Dilated IVC with poor inspiration collapse is consistent with elevated right atrial pressure. Pericardium There is no pericardial effusion. Small left pleural effusion. 2D Dimensions IVSD d PLAX 1.70 cm M: 0.6-1.2 Ao Root d 2.85 cm M: 3.1 - 3.7 LVPW d PLAX 1.64 cm M: 0.6 - 1.2 Ao Asc Diam d 3.26 cm M: 2.6 - 3.4 LVID d PLAX 4.25 cm M: 4.2 - 5.8 RVID Mid Diam 4.76 cm LVDs 2.42 cm M: 2.5 - 4.0 RVID Base Diam (A4C) 4.02 cm (M/F) 2.5-4.1 LV EF Teichholz 74.5 % IVC Diam exp d SLAX 2.8 cm FS 43.06 % LV EDV (Teich) 80.9 mL LV ESV (Teich) 20.6 mL M-Mode TAPSE 1.86 cm (M/F) >1.7 LV Volumes - Method of Disks (Antunez's) Single Plane 2D LV Volumes Biplane 2D LV Volumes LV EDV A4C 108.5 mL LV EDV BP 81.36 mL M: 62 - 150 LV ESV A4C 19.6 mL LV ESV BP 16.5 mL LVEF(%) A4C 82.0 % LVEF(%) BP 79.71 % M: 52 - 72 LV EDV A2C 55.9 mL LV EDV BP Index 36.00 mL/m2 M: 34 - 74 LV ESV A2C 12.7 mL SV BP LVEF(%) A2C 77.2 % SV Index LA Volume LA Length A4C 7.2 cm LA Length A2C 7.0 cm LA Area A4C s 32.78 cm2 LA Area A2C s 31.16 cm2 LA Vol A4C A-L 126.14 mL LA Vol A2C A-L 118.47 mL LA Vol Biplane A-L 124.6 mL LA Vol/BSA A4C A-L LA Vol/BSA A2C A-L LA Vol/BSA BP A-L 55.1 mL/m2 LA Vol A4C MOD 120.7 mL LA Vol A2C MOD 115.1 mL LA Vol BP MOD 119.8 mL LV Diastology MV E' medial 0.060 (>0.07 m/s) MV E Vmax 1.10 (0.4-1.3 m/s) MV E/E' MED 18.35 (<14) MV A Vmax 0.20 (0.4-1.3 m/s) MV E' lateral 0.107 (>0.1 m/s) E/A Ratio 5.5 MV E/E' LAT 10.33 (<14) MV E' Average 0.083 m/s MV E/E'(average) 13.22 Aortic Valve AoV Vmax 3.47 m/s LVOT Vmax 0.94 m/s AoV Peak Grad 48.1 mmHg LVOT Peak Grad 3.6 mmHg AoV Area (Vmax) 0.94 cm2 LVOT VTI 0.197 m AoV VTI 0.703 m LVOT Mean Grad 2.1 mmHg AoV Mean Aron. 2.40 m/s LVOT SV 67.82 mL AoV Mean Grad 25.7 mmHg LVOT Diam s 2.05 cm AoV Area (VTI) 0.96 cm2 AV Regurg Peak Gr. 48.14 mmHg ROCCO (Planimetry) 1.1 cm2 Velocity Ratio 0.27 Mitral Valve MV DT 167 (160-240 msec) Pulmonary Valve RVOT Vmax 0.55 m/s RVOT Peak Gr. 1.2 mmHg RVOT VTI 0.098 m RVOT Mean Gr. 0.7 mmHg NV ED Velocity 1.46 m/s NV ED Grad 8.6 mmHg Tricuspid Valve RA Pressure 15.00 mmHg TR Vmax 3.61 m/s TV S' 0.11 m/s TR Peak Grad 52.0 mmHg RVSP (TR) 67.0 mmHg Shunt Evaluation Pulmonic VTI (Qp) 11.2 cm Systemic VTI (Qs) 15.8 cm QP / QS 1.14 Pulmonic Diameter 2.7 cm Systemic Diameter 2.1 cm
== END ==
LOC: DI 00:25
PROVIDERS: PCP Internal Medicine; Visit Provider Internal Medicine Cardiovascular Disease
DX: I25.10 Atherosclerotic heart disease of native coronary artery without angina pectoris (principal); I48.21 Permanent atrial fibrillation; I51.7 Cardiomegaly
CPT/HCPCS: 93306

== ENCOUNTER → 2025-02-23 11:18 | Outpatient (BNVA) | payer MEDICARE, SELFPAY | PROVIDERS: PCP Internal Medicine; Referring Provider Internal Medicine; Visit Provider Internal Medicine Cardiovascular Disease | DX: I27.20 Pulmonary hypertension, unspecified (principal); I48.21 Permanent atrial fibrillation; I35.0 Nonrheumatic aortic (valve) stenosis; R06.02 Shortness of breath; Z79.01 Long term (current) use of anticoagulants | CPT/HCPCS: 99214 ==